=== PATIENT | male | born 1945 | race Caucasian/White ===

== ENCOUNTER → 2017-01-19 | Day surgery (SDC) | payer MEDICARE, OTHER ==
[~2017-01-19] MED LIST: ATROPINE SULFATE 1% OPHT SOLN 5 ML BTL ONE; DEXAMETHASONE SOD PHOS 4 MG/ML VIAL ONE; EPINEPHrine HCL (1:1000) 1 MG/ML VIAL ONE; LACTATED RINGER'S 1000 ML INJ 1,000 ML ONE; MOXIFLOXACIN 0.5% OPHT SOLN 3 ML BTL ONE; ONDANSETRON HCL 4 MG/2 ML VIAL IV PUSH ONE; PHENYLEPHRINE HCL 10% OPTH SOLN 5 ML BTL ONE; PROPOFOL 200 MG/20 ML AMP IV ONE; SODIUM CHLORIDE 0.9% INJ 10 ML ONE; TETRACAINE 0.5% OPTH SOLN 15 ML BTL ONE; TOBRAMYCIN/DEXAMETHASONE OPTH OINT 3.5 GM TUBE ONE; TRIAMCINOLONE ACETONIDE 40 MG/ML VIAL ONE; TROPICAMIDE 1% OPHT SOLN 15 ML BTL ONE; ceFAZolin INJ 1,000 MG VIAL ONE; prednisoLONE ACETATE 1% OPHT SUSP 5 ML BTL ONE
--- NOTE | 2017-01-21 07:21 | MP ---
cc: ANGIE ADRIAN MD DATE OF SURGERY 01/20/2017 PREOPERATIVE DIAGNOSIS Proliferative diabetic retinopathy, vitreous hemorrhage right eye. POSTOPERATIVE DIAGNOSIS Proliferative diabetic retinopathy, vitreous hemorrhage right eye. PROCEDURE Pars vitrectomy, endolaser, insertion of intravitreal Kenalog right eye. ANESTHESIA Dr. Ingram, general BLOOD LOSS Less than 1 cc. COMPLICATIONS None INDICATIONS FOR PROCEDURE This is a delightful patient with a long history of diabetic retinopathy who presented with significant vitreous hemorrhage of his right eye. The patient had the nuclear sclerotic cataract removed and then he elected for vitrectomy with removal of the vitreous hemorrhage. The patient understands vision could be limited due to the diabetic retinopathy. PROCEDURE NOTE After informed consent was obtained, the patient was brought to the operating room. General anesthesia was established. The right eye was prepped and draped in a sterile fashion with Betadine in the conjunctival fornix. Core vitreous was evacuated along with vitreous hemorrhage and retinal traction was relieved. Scleral depressed examination revealed no retinal holes, tears, or detachments. Endolaser was applied in a PRP fashion. Intravitreal Kenalog was instilled. The trocars were removed and sclerotomies closed with several Vicryl sutures. The conjunctiva was reapproximated 6-0 plain gut. A subconjunctival injection of Ancef and dexamethasone were given. The eye was patched with Tobramycin ointment. The patient was brought to recovery room in stable condition. Continued followup with [facility] for his postoperative care. MD YOHANNES Banuelos/DJL /4:56 PM /7:17 AM
== END | disposition home or self-care (01) ==
LOC: ESDC 08:33
PROVIDERS: ATTEND Ophthalmology
DX: E11.3591 Type 2 diabetes mellitus with proliferative diabetic retinopathy without macular edema, right eye (principal); H43.11 Vitreous hemorrhage, right eye; Z79.4 Long term (current) use of insulin
CPT/HCPCS: 00145; 67043; 82948; J0171; J0690; J1100; J2405; J3010; J3301; J7120